=== PATIENT | female | born 1950 | race Caucasian/White ===

== ENCOUNTER 2017-11-11 07:38 | Day surgery (SDC) | payer MEDICARE, BC ==
[2017-11-11] MEDS ORDERED: FENTANYL 100MCG/2ML SOL ONE (07:41)
[2017-11-11] MEDS ORDERED: LIDOCAINE HCL 1% MPF SOL ONE ×2 (07:41→08:01)
[2017-11-11] MEDS ORDERED: PROPOFOL 500 MG/50 ML EMU IV ONE (07:41)
[2017-11-11 09:49] VITALS: BP 112/65; PULSE 67; RESP 20; TEMP 98; O2SAT 94
== END 2017-11-11 10:00 | disposition home or self-care (01) | DRG 601 ==
LOC: SURG 07:38
PROVIDERS: ATTEND Surgery
DX: N61.0 Mastitis without abscess (principal); L98.491 Non-pressure chronic ulcer of skin of other sites limited to breakdown of skin; L98.492 Non-pressure chronic ulcer of skin of other sites with fat layer exposed; Z98.890 Other specified postprocedural states; R60.0 Localized edema
CPT/HCPCS: 15271; 99213; J3010; A6232; A9270-GY; J2001; J2704; Q4137

== ENCOUNTER 2018-01-15 13:44 | Inpatient (IN) | payer MEDICARE, BC ==
[2018-01-15] MEDS ORDERED: PDS IV ONE (14:24)
[2018-01-15] MEDS ORDERED: PHARMACOKINETICS 1 MISC ONE (14:24)
[2018-01-15] MEDS ORDERED: SODIUM CHLORIDE 0.9% IV ONE (14:24)
[2018-01-15] MEDS ORDERED: SODIUM CHLORIDE 0.9% 1000ML 1,000 ML IV ONE (14:24)
[2018-01-15] MEDS ORDERED: VANCOMYCIN HCL IV ONE (14:24)
[2018-01-15] MEDS ORDERED: LEVOFLOXACIN 25 MG/ML 750 MG in SODIUM CHLORIDE 0.9% 50 ML 50 ML IV SCH (14:30)
[2018-01-15] MEDS ORDERED: VANCOMYCIN HYDROCHLORIDE 500 MG PDS IV ONE (15:08)
[2018-01-15] MEDS ORDERED: SODIUM CHLORIDE 0.9% 250 ML 250 ML IV ONE (15:08)
[2018-01-15] MEDS: APAP/HYDROCODONE 325/5 TAB PO PRN ×2 (15:20→21:01)
[2018-01-15] MEDS ORDERED: LEVOFLOXACIN 25 MG/ML SOL IV ONE (16:19)
[2018-01-15] MEDS ORDERED: SODIUM CHLORIDE 0.9% 50 ML 50 ML IV ONE (16:19)
[2018-01-15] MEDS ORDERED: ACETAMINOPHEN 500 MG 500 MG TAB PO PRN (16:49)
[2018-01-15] MEDS: IBUPROFEN 600 MG TAB PO PRN (16:52)
[2018-01-15] MEDS: LACTOBACILLUS ACIDOPHILUS 1 CAP CAP PO SCH ×2 (19:53→21:01)
[2018-01-15] MEDS: CALCIUM CARBONATE 500 MG TAB PO SCH (21:01)
[2018-01-15] MEDS: POTASSIUM CHLORIDE 10 MEQ TER PO SCH (21:01)
[2018-01-15] MEDS: PANTOPRAZOLE SODIUM 40 MG ECT PO SCH (21:01)
[2018-01-16] MEDS ORDERED: VANCOMYCIN HYDROCHLORIDE 500 MG PDS IV ONE (02:55)
[2018-01-16] MEDS ORDERED: SODIUM CHLORIDE 0.9% 250 ML 250 ML IV ONE (02:55)
[2018-01-16] MEDS ORDERED: VANCOMYCIN HCL 500 MG PDS 1,250 MG in SODIUM CHLORIDE 0.9% 250 ML 250 ML IV SCH (03:00)
[2018-01-16] MEDS: APAP/HYDROCODONE 325/5 TAB PO PRN ×2 (03:01→10:29)
[2018-01-16] MEDS: IBUPROFEN 600 MG TAB PO PRN ×2 (03:09→11:57)
[2018-01-16] MEDS: PANTOPRAZOLE SODIUM 40 MG ECT PO SCH (08:44)
[2018-01-16] MEDS: POTASSIUM CHLORIDE 10 MEQ TER PO SCH (08:45)
[2018-01-16] MEDS: CALCIUM CARBONATE 500 MG TAB PO SCH (08:45)
[2018-01-16] MEDS: LACTOBACILLUS ACIDOPHILUS 1 CAP CAP PO SCH (08:52)
[2018-01-16 08:57] VITALS: BP 118/76; PULSE 74; RESP 16; O2SAT 94
[2018-01-16] MEDS ORDERED: MULTIVITAMIN2 1 EA TAB PO SCH (09:00)
[2018-01-16] MEDS ORDERED: HYDROCHLOROTHIAZIDE/TRIAMTER 25/37.5 CAPSULE PO SCH ×2 (09:00)
[2018-01-16] MEDS ORDERED: FUROSEMIDE 20 MG TAB PO SCH (09:00)
[2018-01-16] MEDS ORDERED: LETROZOLE 2.5 MG TAB PO SCH (09:00)
[2018-01-16 10:34] VITALS: TEMP 98.4
[2018-01-16 10:58] LABS: BASOPHILS % (AUTO) 1 % (0-3); EOSINOPHILS % (AUTO) 1 % (0-9); HEMATOCRIT 37 % (35-47); MEAN CORPUSCULAR HGB CONC 33.5 gm/dl (32.0-36.0); MEAN CORPUSCULAR VOLUME 90 fL (81-99); MONOCYTES % (AUTO) 8.1 % (0-12); NEUTROPHILS % (AUTO) 78.6 % (37-80)
[2018-01-16 11:06] LABS: CALCIUM 8.9 mg/dl (8.5-10.1); POTASSIUM 3.6 mMol/L (3.5-5.1)
== END 2018-01-16 12:15 | disposition short-term general hospital (02) | DRG 603 ==
LOC: ACUTE CARE 14:04
PROVIDERS: ADMIT Family Medicine; ATTEND Family Medicine
DX: L03.313 Cellulitis of chest wall (principal); F51.02 Adjustment insomnia; L02.411 Cutaneous abscess of right axilla; I10 Essential (primary) hypertension; Z85.3 Personal history of malignant neoplasm of breast
CPT/HCPCS: 36415; 80048; 85025; 87070; 87077; 87186; J1956; J3370; A6232; A9270-GY

== ENCOUNTER 2018-07-13 13:54 | Day surgery (SDC) | payer MEDICARE, BC ==
[~2018-07-13 13:54] MED LIST: MIDAZOLAM 2 MG/2 ML SOL ONE
[2018-07-13] MEDS: CYCLOPENTOLATE 1% SOL ONE ×3 (14:15→14:30)
[2018-07-13] MEDS: TROPICAMIDE 1% OPHTH SOL ONE ×3 (14:15→14:30)
[2018-07-13] MEDS: PHENYLEPHRINE HCL 10% OPHTHAL SOL ONE ×3 (14:15→14:30)
[2018-07-13] MEDS ORDERED: KETOROLAC/HOME 0.5% SOL LEFTEYE ONE ×3 (14:15→14:30)
[2018-07-13] MEDS ORDERED: MOXIFLOXACIN-HOME SOL LEFTEYE ONE ×2 (14:22→14:30)
[2018-07-13] MEDS: PROPARACAINE HCL 0.5% OPHTHALMIC SOL ONE ×2 (14:30→15:33)
[2018-07-13] MEDS ORDERED: LIDOCAINE HCL 2% MPF 10 ML SOL ONE (15:28)
[2018-07-13] MEDS ORDERED: BSS W/ 0.5 MG P.F. EPI 1 BOTTLE ONE (15:29)
[2018-07-13] MEDS ORDERED: POVIDONE IODINE 5% SOL ONE (15:29)
[2018-07-13] MEDS ORDERED: ACETAZOLAMIDE 250 MG PO ONE (15:51)
[2018-07-19 12:43] VITALS: BP 142/82; PULSE 84; RESP 18; TEMP 97.6; O2SAT 99
== END 2018-07-13 16:41 | disposition home or self-care (01) | DRG 125 ==
LOC: SURG 13:54
PROVIDERS: ATTEND Ophthalmology
DX: H25.89 Other age-related cataract (principal)
CPT/HCPCS: J2250; A9270-GY

== ENCOUNTER 2018-08-10 13:00 | Day surgery (SDC) | payer MEDICARE, BC ==
[2018-08-10] MEDS: PHENYLEPHRINE HCL 10% OPHTHAL SOL ONE ×3 (13:15→13:24)
[2018-08-10] MEDS: CYCLOPENTOLATE 1% SOL ONE ×3 (13:15→13:24)
[2018-08-10] MEDS: TROPICAMIDE 1% OPHTH SOL ONE ×3 (13:16→13:24)
[2018-08-10] MEDS ORDERED: MOXIFLOXACIN-HOME SOL OP ONE ×2 (13:16→13:21)
[2018-08-10] MEDS ORDERED: KETOROLAC/HOME 0.5% SOL OP ONE ×3 (13:16→13:25)
[2018-08-10] MEDS: PROPARACAINE HCL 0.5% OPHTHALMIC SOL ONE ×2 (13:25→13:49)
[2018-08-10 13:26] VITALS: PULSE 78; O2SAT 95
[2018-08-10] MEDS ORDERED: POVIDONE IODINE 5% SOL ONE (13:44)
[2018-08-10] MEDS ORDERED: BSS W/ 0.5 MG P.F. EPI 1 BOTTLE ONE (13:44)
[2018-08-10] MEDS ORDERED: LIDOCAINE HCL 2% MPF 10 ML SOL ONE (13:44)
[2018-08-10] MEDS ORDERED: ACETAZOLAMIDE 250 MG PO ONE (13:54)
[2018-08-10 14:13] VITALS: BP 124/66; RESP 16; TEMP 97.1
== END 2018-08-10 14:30 | disposition home or self-care (01) | DRG 125 ==
LOC: SURG 13:00
PROVIDERS: ATTEND Ophthalmology
DX: H25.89 Other age-related cataract (principal)
CPT/HCPCS: J2250; A9270-GY